=== PATIENT | female | born 1980 | race African-American/Black ===

== ENCOUNTER 2016-07-23 09:50 | Emergency (ER) | payer BC ==
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
[2016-07-23 11:28] LABS: APPEARANCE,URINE CLOUDY; BILIRUBIN,URINE NEGATIVE (NEGATIVE); GLUCOSE, URINE NEGATIVE (NEGATIVE); KETONES,URINE 20 mg/dL (NEGATIVE); LEUKOCYTE ESTERASE,URINE MODERATE (NEGATIVE); NITRITE,URINE NEGATIVE (NEGATIVE); PROTEIN,URINE NEGATIVE (NEGATIVE); URINE SPECIFIC GRAVITY 1.023
[2016-07-23 11:42] LABS: ALANINE AMINOTRANSFERASE 34 U/L (9-52); ALBUMIN 4.4 g/dL (3.5-5.0); ALCOHOL < 10 mg/dL (NONE DETECTED); ALKALINE PHOSPHATASE 69 U/L (38-126); ANION GAP 13 (5-19); ASPARTATE AMINO TRANSFERASE 34 U/L (14-36); BILIRUBIN,DIRECT 0.4 mg/dL (0.0-0.4); BILIRUBIN,TOTAL 1.2 mg/dL (0.2-1.3); BLOOD UREA NITROGEN 11 mg/dL (7-20); CALCIUM 9.8 mg/dL (8.4-10.2); CARBON DIOXIDE 23 mmol/L (22-30); CHLORIDE 107 mmol/L (98-107); CREATININE RESULT 0.73 mg/dL (0.52-1.25); GLUCOSE 78 mg/dL (75-110); POTASSIUM 4.3 mmol/L (3.6-5.0); SODIUM 143.3 mmol/L (137-145); TOTAL PROTEIN 7.8 g/dL (6.3-8.2); URINE BARBITURATES SCREEN NEGATIVE; URINE METHADONE SCREEN NEGATIVE; URINE OPIATES LOW NEGATIVE; URINE PHENCYCLIDINE SCREEN NEGATIVE
[2016-07-23 12:04] LABS: ABSOLUTE EOSINOPHILS # (AUTO) 0.1 10^3/uL (0.0-0.6); ABSOLUTE LYMPHOCYTES (AUTO) 1.4 10^3/uL (0.5-4.7); ABSOLUTE MONOCYTES (AUTO) 0.3 10^3/uL (0.1-1.4); ABSOLUTE NEUT (AUTO) 5.2 10^3/uL (1.7-8.2); BASOPHILS % (AUTO) 0.4 % (0-2); EOSINOPHILS % (AUTO) 1.1 % (0-6); HEMATOCRIT 37.7 % (36.0-47.0); HEMOGLOBIN 12.4 g/dL (12.0-15.5); HGB HCT DIFFERENCE -0.5; LYMPHOCYTES % (AUTO) 19.8 % (13-45); MEAN CORPUSCULAR HEMOGLOBIN 29.6 pg (27.0-33.4); MEAN CORPUSCULAR HGB CONC 32.9 g/dL (32.0-36.0); MEAN CORPUSCULAR VOLUME 90 fl (80-97); MONOCYTES % (AUTO) 4.4 % (3-13); RED BLOOD COUNT 4.19 10^6/uL (3.72-5.28); RED CELL DISTRIBUTION WIDTH 14.8 % (11.5-14.0); SEGMENTED NEUTROPHILS % (AUTO) 74.3 % (42-78)
[2016-07-23] MEDS ORDERED: ALPRAZOLAM 0.25 MG TABLET PO ONE (12:18)
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
[2016-07-23 15:22] VITALS: BP 119/65
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
--- NOTE | 2016-07-23 21:14 | EKG REPORT ---
SEVERITY:- NORMAL ECG - SINUS RHYTHM : Confirmed by: Adriana Colmenares 23-Jul-2016 21:14:04
== END 2016-07-23 15:30 | disposition home or self-care (01) ==
LOC: ER 09:50
DX: F39 Unspecified mood [affective] disorder (principal); F32.9 Major depressive disorder, single episode, unspecified
CPT/HCPCS: 36415; 80053; 80307; 81001; 84443; 85025; 93005; 93010; 99285

== ENCOUNTER 2017-10-26 20:44 | Emergency (ER) | payer MEDICAID ==
[2017-10-26] MEDS ORDERED: LIDOCAINE 2% INJ-PF (20 MG/ML) 10 ML AMPUL NEB ONE (21:08)
[2017-10-26] MEDS ORDERED: RACEPINEPHRINE HCL 2.25% NEB 0.5 ML AMPUL NEB ONE (21:08)
[2017-10-26] MEDS ORDERED: DEXAMETHASONE SOD PHOS INJ 10 MG/1 ML VIAL IV ONE (21:09)
[2017-10-26] MEDS ORDERED: NORMAL SALINE 1000 ML 1,000 ML IV ONE (21:09)
--- NOTE | 2017-10-26 21:10 | ER Document Report ---
ED General - General Chief Complaint: Allergic Reaction Stated Complaint: POSSIBLE ALLERGIC REACTION Time Seen by Provider: 10/26/17 21:08 Notes: Patient is a 37-year-old female who presents with a sensation of throat tightening and difficulty breathing after eating coconut. Reports that her symptoms started almost immediately after eating this food item. She states that her symptoms have been ongoing since that time and she feels that they have progressively worsened. Nothing improves or worsens her symptoms. She reports that she had similar symptoms once in the past but could not attributed definitively to coconut at that time so decided to eat coconut again today. She denies any hives, nausea, vomiting, throat swelling, or syncope. TRAVEL OUTSIDE OF THE [place] IN LAST 30 DAYS: No COUNTRY TRAVELED TO/FROM: [facility] - Related Data Allergies/Adverse Reactions: coconut Allergy (Verified 10/26/17 20:45) shellfish derived Allergy (Verified 10/26/17 20:45) Past Medical History - General Information source: Patient - Social History Smoking Status: Never Smoker Frequency of alcohol use: None Drug Abuse: None Lives with: Spouse/Significant other Family History: Reviewed & Not Pertinent Renal/ Medical History: Denies: Hx Peritoneal Dialysis - Immunizations Hx Diphtheria, Pertussis, Tetanus Vaccination: Yes Review of Systems - Review of Systems Notes: Constitutional: Negative for fever. HENT: Positive for throat tightness Eyes: Negative for visual changes. Cardiovascular: Negative for chest pain. Respiratory: Positive for shortness of breath. Gastrointestinal: Negative for abdominal pain, vomiting or diarrhea. Genitourinary: Negative for dysuria. Musculoskeletal: Negative for back pain. Skin: Negative for rash. Neurological: Negative for headaches, weakness or numbness. 10 point ROS negative except as marked above and in HPI. Physical Exam - Vital signs Vitals: Temp Pulse Resp BP Pulse Ox 97.7 F 108 H 24 H 110/69 100 10/26/17 20:49 10/26/17 20:49 10/26/17 20:49 10/26/17 20:49 10/26/17 20:49 Interpretation: Tachycardic Notes: PHYSICAL EXAMINATION: GENERAL: Appears mildly uncomfortable but in no distress HEAD: Atraumatic, normocephalic. EYES: Pupils equal round and reactive to light, extraocular movements intact, sclera anicteric, conjunctiva are normal. ENT: nares patent, oropharynx clear without exudates. No oropharyngeal edema or swelling. Moist mucous membranes. NECK: Normal range of motion, supple without lymphadenopathy LUNGS: Breath sounds clear to auscultation bilaterally and equal. No wheezes rales or rhonchi. HEART: Regular tachycardia without murmurs ABDOMEN: Soft, nontender, normoactive bowel sounds. No guarding, no rebound. No masses appreciated. EXTREMITIES: Normal range of motion, no pitting or edema. No cyanosis. NEUROLOGICAL: No focal neurological deficits. Moves all extremities spontaneously and on command. PSYCH: Normal mood, normal affect. SKIN: Warm, Dry, normal turgor, no rashes or lesions noted. Course - Re-evaluation Re-evalutation: 10/26/17 21:09 Patient presents with tightness in her throat but no obvious respiratory distress or oropharyngeal edema, no stridor on exam. This started after she ate coconut and she has had similar reactions in the past. She has no hives, nausea, vomiting or hypotension. No indication for IM epinephrine at this time point given lack of objective findings on exam and vitals. Racemic epinephrine and nebulized lidocaine will be administered. Will give IV dexamethasone. Will reassess in approximately 20 minutes after these interventions have been completed. 10/26/17 23:05 Patient has no ongoing sensation of throat tightness. Continues without stridor or wheezing. At this time will discharge with return precautions and follow-up recommendations. Verbal discharge instructions given a the bedside and opportunity for questions given. Medication warnings reviewed. Patient is in agreement with this plan and has verbalized understanding of return precautions and the need for primary care follow-up in the next 24-72 hours. - Vital Signs Vital signs: Temp Pulse Resp BP Pulse Ox 97.7 F 108 H 14 116/72 96 10/26/17 20:49 10/26/17 20:49 10/26/17 21:31 10/26/17 21:31 10/26/17 21:31 Discharge - Discharge Clinical Impression: Shortness of breath, Throat tightening Allergic reaction Qualifiers: Encounter type: initial encounter Qualified Code(s): T78.40XA - Allergy, unspecified, initial encounter Condition: Good Disposition: HOME, SELF-CARE Additional Instructions: Do not eat any additional coconut. You appear to have an allergy to this food item and can have a much more severe reaction in the future. Please return if he develops recurrence of shortness of breath, throat tightening, hives, lightheadedness, pass out, or have any other symptoms that are worrisome to you. Referrals: JUANA NG MD [Primary Care Provider] - Follow up as needed
[2017-10-27 03:52] VITALS: BP 105/63
== END 2017-10-26 23:20 | disposition home or self-care (01) ==
LOC: ER 20:44
DX: T78.40XA Allergy, unspecified, initial encounter (principal); R06.02 Shortness of breath; R09.89 Other specified symptoms and signs involving the circulatory and respiratory systems
CPT/HCPCS: 94640 ×2; 99283; 96361; 96374; J7030; J3490 ×2; J1100

== ENCOUNTER 2017-11-15 17:10 | Emergency (ER) | payer MEDICAID ==
[2017-11-15 17:16] VITALS: BP 117/60
--- NOTE | 2017-11-15 17:21 | ER Document Report ---
HPI - HPI Patient complains to provider of: UTI Onset: Other - 2 days Pain Level: 0 Context: 37 yo female with dysuria, frequency, urgency for 2 days. HX UTI> No n/v, fever or flank pain. Associated Symptoms: None Exacerbated by: Denies Relieved by: Denies - ROS ROS below otherwise negative: Yes Systems Reviewed and Negative: Yes All other systems reviewed and negative Past Medical History - General Information source: Patient - Social History Smoking Status: Unknown if Ever Smoked Lives with: Family Family History: Reviewed & Not Pertinent - Medical History Medical History: Negative Renal/ Medical History: Denies: Hx Peritoneal Dialysis Surgical Hx: Negative - Immunizations Hx Diphtheria, Pertussis, Tetanus Vaccination: Yes Vertical Provider Document - CONSTITUTIONAL Agree With Documented VS: Yes Exam Limitations: No Limitations General Appearance: No Apparent Distress - INFECTION CONTROL TRAVEL OUTSIDE OF THE [place] IN LAST 30 DAYS: No COUNTRY TRAVELED TO/FROM: [facility] - GI/ABDOMEN Gastrointestinal: Abdomen Soft, Abdomen Non-Tender, No Organomegaly - BACK Back: negative: CVA Tenderness-Right, CVA Tenderness-Left - NEURO Level of Consciousness: Awake Course - Re-evaluation Re-evalutation: 11/15/17 17:48 Patient is allergic to penicillin will start her on Macrobid, the urine culture is pending. 11/15/17 18:05 Patient wants Diflucan in case she gets a vaginal yeast infection being started on the antibiotic for the urinary tract infections there is 137 WBCs in the urine with a trace of bacteria 11/15/17 18:05 - Vital Signs Vital signs: Temp Pulse Resp BP Pulse Ox 98.2 F 94 20 117/60 98 11/15/17 17:15 11/15/17 17:15 11/15/17 17:15 11/15/17 17:15 11/15/17 17:15 Discharge - Discharge Clinical Impression: Cystitis Condition: Good Disposition: HOME, SELF-CARE Instructions: Nitrofurantoin ([facility]), Urinary Tract Infection ([facility]) Additional Instructions: plenty of fluids macrobid for 1 week urine culture is pending Prescriptions: Fluconazole [Diflucan] 150 mg PO ONCE PRN #1 tablet PRN Reason: Nitrofurantoin/Nitrofuran Mac [Macrobid 100 mg Capsule] 100 mg PO BID #14 capsule Referrals: JUANA NG MD [Primary Care Provider] - Follow up as needed
[2017-11-15] MEDS ORDERED: NITROFURANTOIN MONOHYD/M-CRYST 100 MG CAPSULE PO ONE (17:47)
[2017-11-15 17:48] LABS: APPEARANCE,URINE SLIGHTLY-CLOUDY; BILIRUBIN,URINE NEGATIVE (NEGATIVE); COLOR,URINE YELLOW; GLUCOSE, URINE >=500 mg/dL (NEGATIVE); KETONES,URINE NEGATIVE (NEGATIVE); LEUKOCYTE ESTERASE,URINE LARGE (NEGATIVE); NITRITE,URINE NEGATIVE (NEGATIVE); PROTEIN,URINE NEGATIVE (NEGATIVE); URINE SPECIFIC GRAVITY 1.002; UROBILINOGEN,URINE NEGATIVE mg/dL (<2.0)
== END 2017-11-15 18:11 | disposition home or self-care (01) ==
LOC: ER 17:10
DX: N30.90 Cystitis, unspecified without hematuria (principal); Z88.0 Allergy status to penicillin; Z87.440 Personal history of urinary (tract) infections
CPT/HCPCS: 99283; 87086; 87088; 81001; 87186; J3490; J8499

== ENCOUNTER → 2018-02-06 | Outpatient (CLI) | payer MEDICAID ==
[2018-02-06 10:29] LABS: ABSOLUTE RETICS # 0.033 10^6/uL (0.028-0.122); RETICULOCYTE COUNT (AUTO) 0.83 % (0.66-2.85)
[2018-02-06 10:52] LABS: IRON(TIBC) 59.4 ug/dL (37-170)
[2018-02-06 11:08] LABS: FREE T3 3.63 pg/mL (2.77-5.27)
[2018-02-06 11:22] LABS: THYROID STIMULATING HORMONE 1.26 uIU/mL (0.47-4.68)
[2018-02-06 11:59] LABS: FOLATE 3.58 ng/mL (>2.76)
== END ==
LOC: OD 09:56
PROVIDERS: ATTEND Internal Medicine Geriatric Medicine
DX: D64.9 Anemia, unspecified (principal); R63.5 Abnormal weight gain
CPT/HCPCS: 36415; 82533; 82607; 82728; 82746; 83540; 83550; 84436; 84443; 84481; 85045

== ENCOUNTER 2019-01-12 10:25 | Emergency (ER) | payer OTHER, MEDICAID ==
[2019-01-12] MEDS ORDERED: MORPHINE SULFATE 10 MG/ML INJ IV ONE (11:11)
[2019-01-12] MEDS ORDERED: NORMAL SALINE 1000 ML 1,000 ML IV ONE (11:12)
--- NOTE | 2019-01-12 11:14 | ER Document Report ---
ED Medical Screen (RME) - General Chief Complaint: Pelvic Pain Stated Complaint: PELVIC PAIN Time Seen by Provider: 01/12/19 11:04 Primary Care Provider: JUANA NG MD [Primary Care Provider] - Follow up as needed Notes: Patient is a 38-year-old female who presents emergency department with a chief complaint of right lower pelvic/abdominal pain. Her symptoms started last night. Patient states that her menstrual cycles normally start every of the month like clockwork, but this past Saturday she ended up bleeding. This was early for her. Patient has an IUD in. Patient has a history of an ectopic pr egnancy. Exam: Abdomen-Very tender right lower quadrant/pelvic area. I have greeted and performed a rapid initial assessment of this patient. A comprehensive ED assessment and evaluation of the patient, analysis of test results and completion of medical decision making process will be conducted by an additional ED providers. TRAVEL OUTSIDE OF THE [place] IN LAST 30 DAYS: No - Related Data Allergies/Adverse Reactions: coconut Allergy (Verified 10/26/17 20:45) Penicillins Allergy (Verified 11/15/17 17:10) shellfish derived Allergy (Verified 10/26/17 20:45) Past Medical History - Social History Frequency of alcohol use: None Drug Abuse: None Renal/ Medical History: Denies: Hx Peritoneal Dialysis - Immunizations Hx Diphtheria, Pertussis, Tetanus Vaccination: Yes Physical Exam - Vital signs Vitals: Temp Pulse Resp BP Pulse Ox 98.5 F 73 20 131/96 H 100 01/12/19 10:44 01/12/19 10:44 01/12/19 10:44 01/12/19 10:44 01/12/19 10:44 Course - Vital Signs Vital signs: Temp Pulse Resp BP Pulse Ox 98.5 F 73 20 131/96 H 100 01/12/19 10:44 01/12/19 10:44 01/12/19 10:44 01/12/19 10:44 01/12/19 10:44 Doctor's Discharge - Discharge Referrals: JUANA NG MD [Primary Care Provider] - Follow up as needed
[2019-01-12 11:58] LABS: ABSOLUTE EOSINOPHILS # (AUTO) 0.1 10^3/uL (0.0-0.6); ABSOLUTE LYMPHOCYTES (AUTO) 1.8 10^3/uL (0.5-4.7); ABSOLUTE MONOCYTES (AUTO) 0.3 10^3/uL (0.1-1.4); ABSOLUTE NEUT (AUTO) 4.1 10^3/uL (1.7-8.2); APPEARANCE,URINE SLIGHTLY-CLOUDY; BASOPHILS % (AUTO) 0.4 % (0-2); BILIRUBIN,URINE NEGATIVE (NEGATIVE); COLOR,URINE YELLOW; EOSINOPHILS % (AUTO) 1.3 % (0-6); GLUCOSE, URINE NEGATIVE (NEGATIVE); HEMOGLOBIN 11.7 g/dL (12.0-15.5); KETONES,URINE TRACE mg/dL (NEGATIVE); LYMPHOCYTES % (AUTO) 28.1 % (13-45); MEAN CORPUSCULAR HEMOGLOBIN 28.6 pg (27.0-33.4); MEAN CORPUSCULAR HGB CONC 33.3 g/dL (32.0-36.0); MEAN CORPUSCULAR VOLUME 86 fl (80-97); MONOCYTES % (AUTO) 4.3 % (3-13); PLATELET COUNT 335 10^3/uL (150-450); PROTEIN,URINE NEGATIVE (NEGATIVE); RED BLOOD COUNT 4.08 10^6/uL (3.72-5.28); RED CELL DISTRIBUTION WIDTH 14.2 % (11.5-14.0); SEGMENTED NEUTROPHILS % (AUTO) 65.9 % (42-78); TOTAL CELLS COUNTED % (AUTO) 100 %; URIC ACID CRYSTALS,URINE FEW /HPF; URINE SPECIFIC GRAVITY 1.011; UROBILINOGEN,URINE NEGATIVE mg/dL (<2.0); WHITE BLOOD COUNT 6.3 10^3/uL (4.0-10.5)
[2019-01-12 12:16] LABS: ALBUMIN 4.4 g/dL (3.5-5.0); ALKALINE PHOSPHATASE 69 U/L (38-126); ANION GAP 11 (5-19); ASPARTATE AMINO TRANSFERASE 31 U/L (14-36); BILIRUBIN,DIRECT 0.1 mg/dL (0.0-0.4); BILIRUBIN,TOTAL 0.5 mg/dL (0.2-1.3); BLOOD UREA NITROGEN 14 mg/dL (7-20); CALCIUM 9.7 mg/dL (8.4-10.2); CARBON DIOXIDE 23 mmol/L (22-30); CHLORIDE 108 mmol/L (98-107); GLUCOSE 85 mg/dL (75-110); POTASSIUM 4.4 mmol/L (3.6-5.0)
--- NOTE | 2019-01-12 12:35 | ER Document Report ---
ED GI/ - General Chief Complaint: Pelvic Pain Stated Complaint: PELVIC PAIN Time Seen by Provider: 01/12/19 11:04 Primary Care Provider: JUANA NG MD [Primary Care Provider] - Follow up as needed Mode of Arrival: Ambulatory Information source: Patient Notes: Patient presents complaining of right inguinal pain off and on for the past 3 days. Patient states that her pain started when her menstrual cycle started. Patient has had nausea but no vomiting or diarrhea. Patient denies any urinary symptoms. Patient does report temperature of 101.9 yesterday but no fever since then. Patient presents today and she was concerned that she may have a tubal as this is similar to how she presented when she had a tubal in the past. TRAVEL OUTSIDE OF THE [place] IN LAST 30 DAYS: No - HPI Patient complains to provider of: Pelvic pain - Right groin. No: Diarrhea, Vomiting Onset: Other - 3 days Timing/Duration: Waxing and waning, Gone Severity in ED: Moderate Pain Level: Denies Location: Other - Right groin area Vaginal bleeding (Compared to normal period): None - Related Data Allergies/Adverse Reactions: coconut Allergy (Verified 10/26/17 20:45) Penicillins Allergy (Verified 11/15/17 17:10) shellfish derived Allergy (Verified 10/26/17 20:45) Past Medical History - General Information source: Patient - Social History Smoking Status: Never Smoker Frequency of alcohol use: Occasional Drug Abuse: None Occupation: Foodservice Family History: Reviewed & Not Pertinent Patient has suicidal ideation: No Patient has homicidal ideation: No - Medical History Medical History: Negative Renal/ Medical History: Denies: Hx Peritoneal Dialysis Past Surgical History: Reports: Hx Gynecologic Surgery, Hx Orthopedic Surgery - Immunizations Hx Diphtheria, Pertussis, Tetanus Vaccination: Yes Review of Systems - Review of Systems Constitutional: Fever. denies: Recent illness EENT: No symptoms reported Cardiovascular: No symptoms reported. denies: Chest pain Respiratory: No symptoms reported. denies: Cough Gastrointestinal: Abdominal pain - Right inguinal area, Nausea. denies: Vomiting Genitourinary: No symptoms reported. denies: Dysuria, Flank pain Female Genitourinary: No symptoms reported Musculoskeletal: No symptoms reported. denies: Back pain Skin: No symptoms reported Hematologic/Lymphatic: No symptoms reported Neurological/Psychological: No symptoms reported Physical Exam - Vital signs Vitals: Temp Pulse Resp BP Pulse Ox 98.5 F 73 20 131/96 H 100 01/12/19 10:44 01/12/19 10:44 01/12/19 10:44 01/12/19 10:44 01/12/19 10:44 - General General appearance: Appears well, Alert In distress: None - HEENT Head: Normocephalic, Atraumatic Eyes: Normal Conjunctiva: Normal Nasal: Normal Mouth/Lips: Normal Mucous membranes: Normal Neck: Normal, Supple - Respiratory Respiratory status: No respiratory distress Chest status: Nontender Breath sounds: Normal. No: Rales, Rhonchi, Stridor, Wheezing Chest palpation: Normal - Cardiovascular Rhythm: Regular Heart sounds: S1 appreciated, S2 appreciated Murmur: No - Abdominal Inspection: Normal Distension: No distension Bowel sounds: Normal Tenderness: Nontender Organomegaly: No organomegaly - Back Back: Normal, Nontender. No: CVA tenderness - Extremities General upper extremity: Normal inspection, Normal strength General lower extremity: Normal inspection, Normal strength - Neurological Neuro grossly intact: Yes Cognition: Normal Jonnathan Coma Scale Eye Opening: Spontaneous [place] Coma Scale Verbal: Oriented [place] Coma Scale Motor: Obeys Commands [place] Coma Scale Total: 15 - Psychological Associated symptoms: Normal affect, Normal mood - Skin Skin Temperature: Warm Skin Moisture: Dry Skin Color: Normal Course - Re-evaluation Re-evalutation: 01/12/19 13:30 Pt's pelvic pain resolved at this time although patient has been medicated. Patient does state that her pain has been off and on and that it had improved prior to receiving the medication. Patient does report she had a fever over 101 yesterday. Will add on the CT scan for further evaluation at this time. 01/12/19 15:11 Patient without any pericecal inflammation noted on CT scan although appendix was not visualized. Abdomen continues soft nontender. No guarding. Patient when she points to where the location of her pain had been points to the right inguinal area. No evidence for hernia at this time. Patient without any objective fever or leukocytosis. Patient appears well. Discussed with patient concerned that we cannot definitively rule out appendicitis. Patient presents with abdominal pain without signs of peritonitis or other life-threatening or serious etiology. Patient appears stable for discharge and has been instructed to return immediately if the symptoms worsen in any wayfor reevaluation. 01/12/19 15:13 Patient states she primarily came in she was concerned about possible tubal . Patient denies any urinary symptoms, urine culture is pending at this time. Will treat for dysmenorrhea and right inguinal pain with good return precautions discussed. 01/12/19 15:15 - Vital Signs Vital signs: Temp Pulse Resp BP Pulse Ox 98.2 F 57 L 20 126/76 H 98 01/12/19 15:17 01/12/19 15:17 01/12/19 15:17 01/12/19 15:17 01/12/19 15:17 - Laboratory Result Diagrams: 01/12/19 11:29 01/12/19 11:29 Laboratory results interpreted by me: 01/12/19 01/12/19 01/12/19 11:29 11:29 11:29 Hgb 11.7 L Hct 35.0 L RDW 14.2 H Chloride 108 H Urine Ketones TRACE H Urine Blood LARGE H Leukocyte Esterase Rfl MODERATE H - Diagnostic Test Radiology reviewed: Reports reviewed Discharge - Discharge Clinical Impression: Dysmenorrhea Inguinal pain Qualifiers: Laterality: right Qualified Code(s): R10.31 - Right lower quadrant pain Condition: Stable Disposition: HOME, SELF-CARE Instructions: Abdominal Pain ([facility]), Dysmenorrhea ([facility]), Observation for Appendicitis ([facility]), Pain Medication Injection ([facility]) Additional Instructions: Return immediately for any new or worsening symptoms: Return of pain, fever, vomiting, or any concerning symptoms Followup with your primary care provider, call tomorrow to make a followup appointment Urine culture is pending at this time, we will call if you need any different treatment Prescriptions: Naproxen [Naprosyn 250 Nmg Tablet] 1 tab PO BID #14 tablet Forms: Return to Work Referrals: JUANA NG MD [Primary Care Provider] - Follow up as needed
--- NOTE | 2019-01-12 12:37 | RADIOLOGY REPORT (SQ) ---
EXAM DESCRIPTION: U/S NON OB PEL TV W/DOPPLER COMPLETED DATE/TIME: 01/12/2019 12:19 pm REASON FOR STUDY: pelvic pain COMPARISON: None. TECHNIQUE: Dynamic and static grayscale images acquired of the pelvis via transvaginal approach and recorded on PACS. Additional selected color Doppler and spectral images recorded. LIMITATIONS: None. FINDINGS: UTERUS: Contour normal. No mass. ENDOMETRIAL STRIPE: An IUD is present. CERVIX: 2.8 cm. No nabothian cysts. RIGHT OVARY AND DOPPLER: Normal size. No worrisome masses. Normal arterial vascular flow without evid ence for torsion. LEFT OVARY AND DOPPLER: Normal size. No worrisome masses. Normal arterial vascular flow without evide nce for torsion. FREE FLUID: None noted. OTHER: No other significant finding. MEASUREMENTS: UTERUS: 8.4 x 4.9 x 4.3 cm. ENDOMETRIAL STRIPE: An IUD is present. RIGHT OVARY: 3.6 x 2.6 x 2.1 cm. LEFT OVARY: 4 x 1.8 x 2.2 cm. IMPRESSION: NORMAL TRANSVAGINAL PELVIC ULTRASOUND. TECHNICAL DOCUMENTATION: JOB ID: [id number]- All Rights Reserved Rev-07/12 Reading location - IP/workstation name: [email or web address]
--- NOTE | 2019-01-12 14:34 | RADIOLOGY REPORT (SQ) ---
EXAM DESCRIPTION: CT ABD/PELVIS NO ORAL OR IV COMPLETED DATE/TIME: 01/12/2019 2:16 pm REASON FOR STUDY: RLQ pain COMPARISON: None. TECHNIQUE: CT scan of the abdomen and pelvis performed without intravenous or oral contrast. Images reviewed with lung, soft tissue, and bone windows. Reconstructed coronal and sagittal MPR images revi ewed. All images stored on PACS. All CT scanners at this facility use dose modulation, iterative reconstruction, and/or weight based d osing when appropriate to reduce radiation dose to as low as reasonably achievable (ALARA). [facility]: Dose Right [facility]: CareDose [facility]: Dose Right [facility]: Teradose 4D [facility]: Smart Novapost RADIATION DOSE: CT Rad equipment meets quality standard of care and radiation dose reduction techniq ues were employed. CTDIvol: 12.5 mGy. DLP: 722 mGy-cm.mGy. LIMITATIONS: None. FINDINGS: LOWER CHEST: No significant findings. No nodules or infiltrates. NON-CONTRASTED LIVER, SPLEEN, ADRENALS: Evaluation limited by lack of IV contrast. No identified sign ificant masses. PANCREAS: No masses. No peripancreatic inflammatory changes. GALLBLADDER: No identified stones by CT criteria. No inflammatory changes to suggest cholecystitis. RIGHT KIDNEY AND URETER: No suspicious masses. Assessment limited by lack of IV contrast. No signif icant calcifications. No hydronephrosis or hydroureter. LEFT KIDNEY AND URETER: No suspicious masses. Assessment limited by lack of IV contrast. There is a small nonobstructing middle calyceal calculus. No hydronephrosis or hydroureter. AORTA AND RETROPERITONEUM: No aneurysm. No retroperitoneal masses or adenopathy. BOWEL AND PERITONEAL CAVITY: Radiopaque suture is present around the stomach. No bowel mass or infla mmation. APPENDIX: Not identified. PELVIS, BLADDER, AND ABDOMINAL WALL:Urinary bladder is normal. No abnormal pelvic mass or fluid soheila ection. An IUD is present in the uterus. BONES: No significant findings. OTHER: No other significant finding. IMPRESSION: 1. The appendix is not identified. No pericecal inflammation is seen. 2. Tiny nonobstructing middle calyceal calculus on the left. COMMENT: Quality ID # [id number]: Final reports with documentation of one or more dose reduction techniques (e.g., Automated exposure control, adjustment of the mA and/or kV according to patient size, use of iterative reconstruction technique) TECHNICAL DOCUMENTATION: JOB ID: [id number] [employer]- All Rights Reserved Reading location - IP/workstation name: [email or web address]
[2019-01-12 15:18] VITALS: BP 126/76
== END 2019-01-12 15:44 | disposition home or self-care (01) ==
LOC: ER 10:25
DX: N94.6 Dysmenorrhea, unspecified (principal); R10.31 Right lower quadrant pain; R10.2 Pelvic and perineal pain; R11.0 Nausea; R50.9 Fever, unspecified; Z88.0 Allergy status to penicillin; Z91.013 Allergy to seafood
CPT/HCPCS: 99284; 96361; 96374; 36415; 87086; 84702; 85025; 80053; 81001; 76830; 93976; 74176; J2270; J7030

== ENCOUNTER 2019-07-04 08:15 | Emergency (ER) | payer MEDICAID, OTHER ==
[2019-07-04 08:20] VITALS: BP 122/72
[2019-07-04] MEDS ORDERED: DEXAMETHASONE SOD PHOS INJ 10 MG/1 ML VIAL IM ONE (08:59)
[2019-07-04] MEDS ORDERED: ONDANSETRON 4 MG TAB.RAPDIS PO ONE (09:01)
[2019-07-04] MEDS ORDERED: FENTANYL CITRATE INJ/PF 100 MCG/2 ML AMPUL IM ONE (09:01)
--- NOTE | 2019-07-04 09:07 | ER Document Report ---
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 Patient also had pain beginning along the left lateral arm and left shoulder pointing to these areas with pain to her left pointer finger ring finger and middle finger. Thumb and little finger not affected. Patient denies any history of blood clots or overuse or trauma or abuse. She has not seen her personal doctor or orthopedic about this. TRAVEL OUTSIDE OF THE [place] IN LAST 30 DAYS: No - HPI Onset: Other - x 3 days Severity: Moderate Pain Level: 2 Associated symptoms: Weakness Exacerbated by: Movement Relieved by: Remaining still Similar symptoms previously: No Recently seen / treated by doctor: No - Related Data Allergies/Adverse Reactions: coconut Allergy (Verified 10/26/17 20:45) Penicillins Allergy (Verified 11/15/17 17:10) shellfish derived Allergy (Verified 10/26/17 20:45) Past Medical History - General Information source: Patient - Social History Smoking Status: Never Smoker Cigarette use (# per day): No Chew tobacco use (# tins/day): No Smoking Education Provided: No Frequency of alcohol use: None Drug Abuse: None Lives with: Family Family History: Reviewed & Not Pertinent Patient has suicidal ideation: No Patient has homicidal ideation: No Renal/ Medical History: Denies: Hx Peritoneal Dialysis Past Surgical History: Reports: Hx Gynecologic Surgery, Hx Orthopedic Surgery - Immunizations Hx Diphtheria, Pertussis, Tetanus Vaccination: Yes Review of Systems - Review of Systems Constitutional: See HPI, Weakness EENT: No symptoms reported Cardiovascular: No symptoms reported Respiratory: No symptoms reported Gastrointestinal: No symptoms reported Genitourinary: No symptoms reported Female Genitourinary: No symptoms reported Musculoskeletal: See HPI, Joint pain - To left extensor elbow with radiation to left deltoid and pain to her left pointer middle and ring fingers, Joint swelling, Muscle pain Skin: No symptoms reported Hematologic/Lymphatic: No symptoms reported Neurological/Psychological: No symptoms reported Physical Exam - Vital signs Vitals: Temp Pulse Resp BP Pulse Ox 98.2 F 78 16 122/72 98 07/04/19 08:20 07/04/19 08:20 07/04/19 08:20 07/04/19 08:20 07/04/19 08:20 Interpretation: Normal - General General appearance: Alert - HEENT Head: Normocephalic, Atraumatic Eyes: Normal Pupils: PERRL Mucous membranes: Normal Pharynx: Normal Neck: Normal - Respiratory Respiratory status: No respiratory distress Chest status: Nontender Breath sounds: Normal Chest palpation: Normal - Cardiovascular Rhythm: Regular Heart sounds: Normal auscultation Murmur: No - Abdominal Inspection: Normal Distension: No distension Bowel sounds: Normal Tenderness: Nontender Organomegaly: No organomegaly - Genitourinary External exam: Other - deferred - Back Back: Normal - Extremities General upper extremity: Tender, Other - Extensor lateral epicondyle area tender to palpation with radiation to left lateral shoulder and pain to her left ring finger middle finger and pointer finger General lower extremity: Normal inspection Course - Vital Signs Vital signs: Temp Pulse Resp BP Pulse Ox 98.2 F 78 16 122/72 98 07/04/19 08:20 07/04/19 08:20 07/04/19 08:20 07/04/19 08:20 07/04/19 08:20 Critical Care Note - Critical Care Note Total time excluding time spent on procedures (mins): 60 Discharge - Discharge Clinical Impression: Lateral epicondylitis of left elbow Condition: Fair Disposition: HOME, SELF-CARE Additional Instructions: Follow-up with personal doctor; return to ER as needed ;take medicines as directed and also follow-up with orthopedics like Dr. Gilberto Valverde call his office tomorrow Prescriptions: Dexamethasone [Decadron 4 Mg Tablet] 4 mg PO DAILY #4 tablet Chlorzoxazone [Parafon Forte Dsc 500 Mg Tablet] 500 mg PO BID PRN #20 tablet PRN Reason: Pain Scale Of 1 Referrals: JUANA NG MD [Primary Care Provider] - Follow up as needed
== END 2019-07-04 09:20 | disposition home or self-care (01) ==
LOC: ER 08:15
DX: M77.12 Lateral epicondylitis, left elbow (principal); M25.512 Pain in left shoulder; M79.645 Pain in left finger(s); R53.1 Weakness; M79.18 Myalgia, other site; Z91.018 Allergy to other foods; Z88.0 Allergy status to penicillin; Z91.013 Allergy to seafood
CPT/HCPCS: 99284; 96372; S0119; J3010; J1100

== ENCOUNTER → 2020-01-06 | Outpatient (CLI) | payer MEDICAID ==
--- NOTE | 2020-01-06 13:24 | WOMENS IMAGING REPORT ---
EXAM DESCRIPTION: 3D SCREENING MAMMO BILAT IMAGES COMPLETED DATE/TIME: 01/06/2020 8:13 am REASON FOR STUDY: Z12.31 ENCNTR SCREEN MAMMOGRAM FOR MALIGNANT NEOPLASM OF BREAST Z12.31 ENCNTR SCR EEN MAMMOGRAM FOR MALIGNANT NEOPLASM OF MICHAEL COMPARISON: None. EXAM PARAMETERS: Views: Standard craniocaudal and mediolateral oblique views of each breast recorded using digital acquisition and breast tomosynthesis. Read with the assistance of CAD. .[facility] - Drive[employer] Version 9.2 LIMITATIONS: None. FINDINGS: No suspicious masses, suspicious calcifications or architectural distortion. No areas of c oncern. IMPRESSION: NEGATIVE MAMMOGRAM. BIRADS 1. BREAST DENSITY: b. There are scattered areas of fibroglandular density. BIRAD: ASSESSMENT: 1 NEGATIVE RECOMMENDATION: ROUTINE SCREENING COMMENT: The patient has been notified of the results by letter per MQSA requirements. Additional no tification policies are in place for contacting patient with suspicious or incomplete findings. Quality ID #[id number]: The [employer] recommends an annual screening mammogram for women aged 40 years or over. This facility utilizes a reminder system to ensure that all patients receive reminder letters, and/or direct phone calls for appointments. This includes reminders for routine scr eening mammograms, diagnostic mammograms, or other Breast Imaging Interventions when appropriate. Th is patient will be placed in the appropriate reminder system. TECHNICAL DOCUMENTATION: FINDING NUMBER: (1) ASSESSMENT: (1) JOB ID: [id number] [employer]- All Rights Reserved Reading location - IP/workstation name: [email or web address]
== END ==
LOC: WI 07:49
PROVIDERS: ATTEND Internal Medicine Geriatric Medicine
DX: Z12.31 Encounter for screening mammogram for malignant neoplasm of breast (principal)
CPT/HCPCS: 77063; 77067